=== PATIENT | male | born 1990 | race Caucasian/White ===

== ENCOUNTER 2018-01-03 03:25 | Observation (INO) | payer MEDICAID ==
[~2018-01-03] VITALS: Ht 170.2 cm; Wt 55.0 kg
[2018-01-03] MEDS ORDERED: TRAZ-136 PO (03:38)
[2018-01-03] MEDS ORDERED: ALPR0.5T6 PO (03:38)
[2018-01-03] MEDS ORDERED: LORazepam 1MG TABLET ONE (03:46)
[2018-01-03 03:54] LABS: BASOPHILS % (AUTO) 1 % (0-1); EOSINOPHILS # (AUTO) 0.05 x10^3/uL (0-0.4); EOSINOPHILS % (AUTO) 1 % (1-7); LYMPHOCYTES # (AUTO) 1.45 x10^3/uL (1-3.4); LYMPHOCYTES % (AUTO) 13 % (22-44); MD NO; MEAN CORPUSCULAR HEMOGLOBIN 30.2 pg (27.5-34.5); MEAN PLATELET VOLUME 9.1 fL (7.4-10.4); MONOCYTES # (AUTO) 0.69 x10^3/uL (0.2-0.8); MONOCYTES % (AUTO) 6 % (2-9); NEUTROPHILS # (AUTO) 9.33 x10^3/uL (1.8-6.8); NEUTROPHILS % (AUTO) 80 % (42-75); PLATELET COUNT 227 x10^3/uL (130-400); RED CELL DISTRIBUTION WIDTH 12.3 % (9.4-14.8)
[2018-01-03 03:57] LABS: ALBUMIN 4.3 g/dL (3.4-5.0); ANION GAP 10 mmol/L (5-15); CHLORIDE 107 mmol/L (98-107)
[2018-01-03 04:00] LABS: ACETAMINOPHEN < 2 mcg/mL (10-30); SALICYLATE LEVEL < 1.7 mg/dL (2.8-20.0)
[2018-01-03] MEDS ORDERED: PLEASE ENTER HEIGHT AND WEIGHT MC SCH (04:00)
[2018-01-03] MEDS ORDERED: LORazepam 1MG TABLET PO ONE (04:00)
[2018-01-03 04:22] LABS: AMPHETAMINE SCREEN, URINE Positive (Negative); BARBITURATE SCREEN, URINE Negative (Negative); BENZODIAZEPINE SCREEN, URINE Positive (Negative); CANNABINOID SCREEN, URINE Negative (Negative); COCAINE SCREEN, URINE Negative (Negative); METHADONE SCREEN, URINE Negative (Negative); OPIATE SCREEN, URINE Negative (Negative)
[2018-01-03] MEDS ORDERED: ZIPRASIDONE 20MG CAPSULE PO PRN (09:30)
[2018-01-03] MEDS ORDERED: BISACODYL 10 MG SUPP PR PRN (09:30)
[2018-01-03] MEDS ORDERED: BENZTROPINE 1 MG TABLET PO PRN (09:30)
[2018-01-03] MEDS ORDERED: ONDANSETRON ODT 4 MG PO PRN (09:30)
[2018-01-03 11:26] VITALS: BP 112/74
[2018-01-03 19:24] VITALS: BP 107/66
[2018-01-04 05:38] LABS: MEAN CORPUSCULAR HEMOGLOBIN 29.9 pg (27.5-34.5); MEAN CORPUSCULAR HGB CONC 33.6 g/dL (33.2-36.2); MEAN PLATELET VOLUME 8.9 fL (7.4-10.4); PLATELET COUNT 214 x10^3/uL (130-400); RED BLOOD COUNT 4.96 x10^6/uL (4.38-5.82); RED CELL DISTRIBUTION WIDTH 12.3 % (9.4-14.8)
[2018-01-04 06:16] LABS: BASOPHILS # (AUTO) 0.04 x10^3/uL (0-0.1); BASOPHILS % (AUTO) 1 % (0-1); EOSINOPHILS # (AUTO) 0.24 x10^3/uL (0-0.4); EOSINOPHILS % (AUTO) 4 % (1-7); LYMPHOCYTES # (AUTO) 1.98 x10^3/uL (1-3.4); LYMPHOCYTES % (AUTO) 34 % (22-44); MD SCAN; MONOCYTES % (AUTO) 10 % (2-9); NEUTROPHILS # (AUTO) 2.94 x10^3/uL (1.8-6.8); NEUTROPHILS % (AUTO) 51 % (42-75)
[2018-01-04 08:18] VITALS: BP 114/67
[2018-01-04 14:25] VITALS: BP 108/60
[2018-01-04] MEDS: NICOTINE 14MG/24 HR PATCH.TD24 TD SCH (14:46)
[2018-01-04 19:35] VITALS: BP 117/72
[2018-01-05 08:20] VITALS: BP 112/77
[2018-01-05] MEDS: NICOTINE 14MG/24 HR PATCH.TD24 TD SCH (15:20)
[2018-01-05 19:47] VITALS: BP 105/64
[2018-01-05] MEDS: TRAZODONE 50MG TABLET PO PRN (20:18)
[2018-01-06 08:18] VITALS: BP 107/64
[2018-01-06] MEDS: HALOPERIDOL 5 MG TABLET PO PRN ×2 (15:12→20:06)
[2018-01-06] MEDS: NICOTINE 14MG/24 HR PATCH.TD24 TD SCH (15:13)
[2018-01-06 19:44] VITALS: BP 110/69
[2018-01-06] MEDS: TRAZODONE 50MG TABLET PO PRN (20:06)
[2018-01-07 08:03] VITALS: BP 112/67
[2018-01-07] MEDS: ACETAMINOPHEN 325 MG TABLET PO PRN (09:54)
[2018-01-07] MEDS: DIAZEPAM 5 MG TABLET PO PRN ×2 (10:37→11:45)
[2018-01-07 15:51] VITALS: BP 114/65
[2018-01-07] MEDS ORDERED: DIAZEPAM 5 MG TABLET PO ONE (16:00)
[2018-01-07] MEDS: NICOTINE 14MG/24 HR PATCH.TD24 TD SCH (16:00)
[2018-01-07 19:55] VITALS: BP 115/70
[2018-01-08 08:10] VITALS: BP 107/70
[2018-01-08] MEDS: NICOTINE 14MG/24 HR PATCH.TD24 TD SCH (15:24)
[2018-01-08] MEDS: DIAZEPAM 5 MG TABLET PO PRN ×2 (17:53→21:48)
[2018-01-08 19:55] VITALS: BP 115/65
[2018-01-08] MEDS: TRAZODONE 50MG TABLET PO PRN (20:12)
[2018-01-08] MEDS: ACETAMINOPHEN 325 MG TABLET PO PRN (20:13)
[2018-01-09 08:23] VITALS: BP_SYST 108
[2018-01-09] MEDS: DIAZEPAM 5 MG TABLET PO PRN (08:54)
== END 2018-01-09 11:30 | disposition home or self-care (01) ==
LOC: ED 03:49 → EDIP 09:24 → 2N 11:25
PROVIDERS: ADMIT Hospitalist; ATTEND Hospitalist
DX: F41.9 Anxiety disorder, unspecified (principal); F43.10 Post-traumatic stress disorder, unspecified; F32.9 Major depressive disorder, single episode, unspecified; R45.851 Suicidal ideations; F15.10 Other stimulant abuse, uncomplicated; F17.200 Nicotine dependence, unspecified, uncomplicated
CPT/HCPCS: 36415; 80048; 80307; 80329; 82040; 85025; 99285; G0378; G0480